=== PATIENT | male | born 1965 | race Caucasian/White ===

== ENCOUNTER 2024-09-01 09:36 | Outpatient (REF) | payer OTHER, SELFPAY ==
[2024-09-01 14:35] LABS: HCT 41.2 % (40.0-50.0); HGB 13.8 g/dL (13.5-17.5); MCH 30.3 pg (27.0-33.0); MCHC 33.5 % (32.0-36.0); MCV 90 fL (80-95); MPV 9.5 fL (8.0-11.0); Platelet Count 307 10^3/uL (130-400); RBC 4.56 10^6/uL (4.36-5.78); RDW 12.4 % (11.8-14.1); RDW-SD 40.2 fL; WBC 5.75 10^3/uL (4.4-10.8)
[2024-09-01 14:51] LABS: ALT 39 U/L (16-63); AST 22 U/L (15-37); Albumin 3.9 g/dL (3.4-5.0); Alkaline Phosphatase 86 U/L (46-116); Anion Gap 4.9 mmol/L (3-11); BUN 16 mg/dL (7-18); Bilirubin, Total 0.3 mg/dL (0.2-1.0); CO2 31.1 mmol/L (21.0-32.0); CREATININE 0.9 mg/dL (0.70-1.30); Calcium 9.5 mg/dL (8.5-10.1); Calculated LDL 129 mg/dL (<100); Chloride 104 mmol/L (98-107); Cholesterol 199 mg/dL (<200); Estimated GFR 97.17 (mL/min/1.73m2); Glucose 99 mg/dL (74-106); HDL Cholesterol 50 mg/dL (>or=40); Potassium 5.1 mmol/L (3.5-5.1); Sodium 140 mmol/L (136-145); Total Protein 7.4 g/dL (6.4-8.2); Triglyceride 103 mg/dL (<150)
[2024-09-07 16:43] LABS: Alpha-1-Antitrypsin 95 mg/dL (100 - 190); Alpha-1-Antitrypsin Phenotype MZ bands
== END 2024-09-01 09:37 | disposition home or self-care (01) ==
LOC: NCHCN 09:36
PROVIDERS: Visit Provider Family Medicine
DX: Z00.00 Encounter for general adult medical examination without abnormal findings (principal); Z83.49 Family history of other endocrine, nutritional and metabolic diseases; E66.9 Obesity, unspecified; Z86.79 Personal history of other diseases of the circulatory system
CPT/HCPCS: 80053; 80061; 85027; 82103; 82104